=== PATIENT | male | born 1955 | race Caucasian/White ===

== ENCOUNTER 2018-07-13 07:13 | Day surgery (SDC) | payer OTHER, MEDICARE ==
[~2018-07-13] VITALS: Ht 162.6 cm; Wt 64.5 kg
[~2018-07-13 07:13] MED LIST: AMMO225L14 TP; ASPI-1213 PO; ASPI-989 GT; ATOR10TA84 GT; BENZ1TAB10 PO; CALC650T PO; CHOL400T14 PO; CLON.5 GT; CLON.5 PO; DIPH-654 PO; DIPH12.55 GT; DIPH50CA4 PO; DOCU100C33 PO; DSSL GT; FOLI1 GT; FORM20VI IH; IPRA4AER IH; IPRAHFA IH; KETO120S13 TP; KETO15CR2 TP; LACT-125 PO; LACT10SO PO; LACT30L GT; LORA10TA7 GT; MELA3TAB66 GT; METF-960 GT; MULT1CAP32 GT; MULT1TAB58 PO; NYST30CR9 TP; OLAN15TA2 PO; OLAN7.5T2 GT; OMEG1600 GT; OS500 GT; PERID15L MM; POLY510P31 GT; RINGERS SOLUTION,LACTATED 1,000 ML IV ONE; TRAZ150 GT; TRAZ150T79 PO; TRIA1KIT8 TP; VITAD400 GT; [UNRECOGNIZED DRUG - CODE] TP
[2018-07-13 08:14] LABS: INR 0.9 (0.9-1.1); PROTHROMBIN TIME 9.8 SEC (9.4-11.6)
[2018-07-13 08:15] LABS: ANION GAP 9 mmol/L (8-16); CALCIUM, TOTAL 9.7 mg/dL (8.8-10.5); CARBON DIOXIDE 27 mmol/L (22-29); CHLORIDE 104 mmol/L (98-107); CREATININE 0.59 mg/dL (0.60-1.30); GLOMERULAR FILTR. RATE CALC > 60 mL/min (>60); GLUCOSE,RANDOM 105 mg/dL (70-110); SODIUM SERUM 140 mmol/L (136-145); UREA NITROGEN, BLOOD 19 mg/dL (7-18)
[2018-07-13 08:23] LABS: ALANINE AMINOTRANSFERASE 28 U/L (12-78); ALBUMIN 3.7 g/dL (3.4-5.0); ALKALINE PHOSPHATASE 190 U/L (46-116); ASPARTATE AMINOTRANSFERASE 20 U/L (15-37); BASOPHILS % (AUTO) 0.3 % (0.0-2.0); BILIRUBIN,TOTAL 0.5 mg/dL (0.1-1.0); EOSINOPHILS % (AUTO) 3.2 % (1.0-6.0); HEMATOCRIT 39.2 % (41-53); HEMOGLOBIN 13.1 g/dL (13.5-17.5); LYMPHOCYTES # (AUTO) 1.9 K/uL (1.0-4.8); LYMPHOCYTES % (AUTO) 18.3 % (22.0-44.0); MEAN CORPUSCULAR HEMOGLOBIN 29.4 pg (26.0-34.0); MEAN CORPUSCULAR HGB CONC 33.4 G/dL (31.0-37.0); MEAN CORPUSCULAR VOLUME 88 fL (80-100); MONOCYTES # (AUTO) 0.5 K/uL (0.1-1.0); MONOCYTES % (AUTO) 4.8 % (2.0-9.0); NEUTROPHILS # (AUTO) 7.7 K/uL (1.8-7.7); NEUTROPHILS % (AUTO) 73.4 % (40.0-70.0); PLATELET COUNT (AUTO) 178 K/uL (150-450); RED BLOOD CELL COUNT(AUTO) 4.45 MIL/uL (4.50-5.90); RED CELL DISTRIBUTION WIDTH 13.8 % (11.5-14.5); TOTAL PROTEIN, SERUM 8.2 g/dL (6.4-8.2)
== END 2018-07-13 09:15 | disposition short-term general hospital (02) ==
LOC: SURGERY 07:13 → EDBD 07:13 → SURGERY 09:15
PROVIDERS: ATTEND Dentist General Practice
DX: K02.9 Dental caries, unspecified (principal); Z53.8 Procedure and treatment not carried out for other reasons; F79 Unspecified intellectual disabilities; G40.909 Epilepsy, unspecified, not intractable, without status epilepticus; K21.9 Gastro-esophageal reflux disease without esophagitis; E03.9 Hypothyroidism, unspecified; F41.9 Anxiety disorder, unspecified; E11.9 Type 2 diabetes mellitus without complications; G80.9 Cerebral palsy, unspecified; Z79.899 Other long term (current) drug therapy; Z79.82 Long term (current) use of aspirin; Z79.84 Long term (current) use of oral hypoglycemic drugs
CPT/HCPCS: 36415; 71045; 80053; 85025; 85610; 85730; 93005; J7120

== ENCOUNTER 2020-06-04 17:29 | Inpatient (IN) | payer MEDICARE, OTHER ==
[~2020-06-04] VITALS: Ht 157.5 cm; Wt 57.1 kg
[~2020-06-04 17:29] MED LIST changes: -ASPI-1213 PO; -BENZ1TAB10 PO; -CALC650T PO; -CHOL400T14 PO; +CHOL400T56 GT; +CLON-592 GT; -CLON.5 GT; -CLON.5 PO; -DIPH-654 PO; -DIPH50CA4 PO; -DOCU100C33 PO; +FOLI-130 GT; -FOLI1 GT; -KETO120S13 TP; -LACT10SO PO; -MELA3TAB66 GT; +MELA3TAB89 GT; -MULT1TAB58 PO; -OLAN15TA2 PO; -RINGERS SOLUTION,LACTATED 1,000 ML IV ONE; -TRAZ150T79 PO; -VITAD400 GT; -[UNRECOGNIZED DRUG - CODE] TP
[2020-06-04] MEDS ORDERED: SODIUM CHLORIDE 0.9% 1,000 ML IV ONE (19:30)
[2020-06-04 20:49] LABS: COVID AG,FIA SOURCE NASOPHARYNGEAL
[2020-06-04 20:58] LABS: BASOPHILS % (AUTO) 0.2 % (0.0-2.0); EOSINOPHILS % (AUTO) 3.8 % (1.0-6.0); HEMATOCRIT 33.9 % (41-53); HEMOGLOBIN 11.1 g/dL (13.5-17.5); LYMPHOCYTES # (AUTO) 1.2 K/uL (1.0-4.8); LYMPHOCYTES % (AUTO) 10.1 % (22.0-44.0); MEAN CORPUSCULAR HEMOGLOBIN 27.6 pg (26.0-34.0); MEAN CORPUSCULAR HGB CONC 32.7 G/dL (31.0-37.0); MEAN CORPUSCULAR VOLUME 84 fL (80-100); MONOCYTES # (AUTO) 0.5 K/uL (0.1-1.0); MONOCYTES % (AUTO) 4.2 % (2.0-9.0); NEUTROPHILS # (AUTO) 9.8 K/uL (1.8-7.7); NEUTROPHILS % (AUTO) 81.7 % (40.0-70.0); PLATELET COUNT (AUTO) 164 K/uL (150-450); RED BLOOD CELL COUNT(AUTO) 4.02 MIL/uL (4.50-5.90); RED CELL DISTRIBUTION WIDTH 15.5 % (11.5-14.5)
[2020-06-04 21:05] LABS: ANION GAP 11 mmol/L (8-16); CALCIUM, TOTAL 9.2 mg/dL (8.8-10.5); CARBON DIOXIDE 24 mmol/L (22-29); CHLORIDE 104 mmol/L (98-107); CREATININE 0.55 mg/dL (0.60-1.30); GLOMERULAR FILTR. RATE CALC > 60 mL/min (>60); GLUCOSE,RANDOM 144 mg/dL (70-110); POTASSIUM 3.4 mmol/L (3.5-5.1); SODIUM SERUM 139 mmol/L (136-145); UREA NITROGEN, BLOOD 22 mg/dL (7-18)
[2020-06-04 21:30] LABS: ALANINE AMINOTRANSFERASE 25 U/L (12-78); ALBUMIN 3.5 g/dL (3.4-5.0); ALKALINE PHOSPHATASE 152 U/L (46-116); ASPARTATE AMINOTRANSFERASE 17 U/L (15-37); BILIRUBIN,TOTAL 0.3 mg/dL (0.1-1.0); CREATINE KINASE, TOTAL ONLY 85 U/L (39-308); TOTAL PROTEIN, SERUM 8.1 g/dL (6.4-8.2)
[2020-06-04 21:37] LABS: LACTIC ACID 1.2 mmol/L (0.4-2.0)
[2020-06-04 21:52] LABS: APPEARANCE,URINE CLOUDY (CLEAR); BILIRUBIN,URINE NEGATIVE (NEGATIVE); GLUCOSE, URINE (UA) NEGATIVE (NEGATIVE); KETONES,URINE TRACE mg/dL (NEGATIVE); LEUKOCYTE ESTERASE ,URINE NEGATIVE (NEGATIVE); NITRATE,URINE NEGATIVE (NEGATIVE); OCCULT BLOOD,URINE NEGATIVE (NEGATIVE); PROTEIN,URINE NEGATIVE (NEGATIVE); UROBILINOGEN,URINE 0.2 mg/dL (<=1.0)
[2020-06-04] MEDS ORDERED: SODIUM CHLORIDE 0.9% 100 ML ONE (21:52)
[2020-06-04] MEDS ORDERED: IOVERSOL 350 MG/ML 150 ML VIAL ONE (21:52)
[2020-06-04 22:00] LABS: BACTERIA,URINE Many /HPF (None Seen); RBC,URINE 0-2 /HPF (0-2); SQUAMOUS EPITHELIAL CELL,UR Few /LPF (None Seen)
[2020-06-05] MEDS: PIPERACILLIN/TAZO 3.375 GM/D5W 50 ML IV SCH ×4 (02:28→22:06)
[2020-06-05 04:45] VITALS: BP 112/70
[2020-06-05 07:25] VITALS: BP 125/79
[2020-06-05] MEDS ORDERED: DHA GT SCH ×2 (09:00)
[2020-06-05] MEDS ORDERED: DOCUSATE SODIUM 100 MG/10 ML LIQUID UDCUP GT SCH (09:00)
[2020-06-05] MEDS ORDERED: AMMONIUM LACTATE 12% 225 GM LOTION TP SCH (09:00)
[2020-06-05] MEDS ORDERED: POTASSIUM CHLORIDE 20 MEQ ER TABLET PO PRN (09:00)
[2020-06-05] MEDS ORDERED: POTASSIUM CHL 10 MEQ/WATER 50 ML IV PRN (09:00)
[2020-06-05] MEDS ORDERED: TRIAMCINOLONE TP SCH ×2 (09:00)
[2020-06-05] MEDS ORDERED: ATORVASTATIN CALCIUM 10 MG TABLET GT SCH (09:00)
[2020-06-05] MEDS ORDERED: DIMETHICONE TP SCH ×2 (09:00)
[2020-06-05] MEDS ORDERED: NYSTATIN 30 GM CREAM TP SCH (09:00)
[2020-06-05] MEDS ORDERED: FISH OIL GT SCH ×2 (09:00)
[2020-06-05] MEDS ORDERED: CHLORHEXIDINE GLUCONATE 0.12% 15 ML UDCUP ORAL RINSE MM SCH (09:00)
[2020-06-05] MEDS ORDERED: [UNRECOGNIZED DRUG - OTHER] PO SCH (09:00)
[2020-06-05] MEDS ORDERED: MULTIVITAMINS, THERAPEUTIC 15 ML UDCUP GT SCH (09:00)
[2020-06-05] MEDS ORDERED: KETOCONAZOLE 2% 15 GM CREAM TP SCH (09:00)
[2020-06-05] MEDS ORDERED: ClonazePAM 0.5 MG TABLET GT SCH (09:00)
[2020-06-05] MEDS ORDERED: IPRATROPIUM BROMIDE HFA 17 MCG/PUFF 12.9 GM INHALER IH SCH (09:00)
[2020-06-05] MEDS ORDERED: EPA GT SCH ×2 (09:00)
[2020-06-05] MEDS ORDERED: OMEGA GT SCH ×2 (09:00)
[2020-06-05] MEDS ORDERED: CHOLECALCIFEROL (VIT D3) 400 UNITS [10 MCG] TABLET GT SCH (09:00)
[2020-06-05] MEDS ORDERED: FORMOTEROL FUMARATE 20 MCG IH SCH ×2 (09:00)
[2020-06-05] MEDS ORDERED: POLYETHYLENE GLYCOL 3350 17 GM PACKET GT SCH (09:00)
[2020-06-05] MEDS ORDERED: SODIUM CHLORIDE 0.9% 500 ML IV ONE (09:57)
[2020-06-05] MEDS: AMMONIUM LACTATE 12% 225 GM LOTION TP SCH ×2 (10:09→22:08)
[2020-06-05] MEDS: NYSTATIN 30 GM CREAM TP SCH ×2 (10:09→22:07)
[2020-06-05] MEDS: KETOCONAZOLE 2% 15 GM CREAM TP SCH (10:09)
[2020-06-05] MEDS: MULTIVITAMINS, THERAPEUTIC 15 ML UDCUP GT SCH (10:12)
[2020-06-05] MEDS: ASPIRIN 81 MG CHEWABLE TABLET GT SCH (10:12)
[2020-06-05] MEDS: LACTULOSE 20 GM/30 ML SOLUTION UDCUP GT SCH (10:12)
[2020-06-05] MEDS: POLYETHYLENE GLYCOL 3350 17 GM PACKET GT SCH (10:13)
[2020-06-05] MEDS: LORATADINE 10 MG TABLET GT SCH (10:13)
[2020-06-05] MEDS: FOLIC ACID 1 MG TABLET GT SCH (10:13)
[2020-06-05] MEDS: CHOLECALCIFEROL (VIT D3) 400 UNITS [10 MCG] TABLET GT SCH (10:13)
[2020-06-05] MEDS: CHLORHEXIDINE GLUCONATE 0.12% 15 ML UDCUP ORAL RINSE MM SCH ×3 (10:14→21:00)
[2020-06-05] MEDS: ATORVASTATIN CALCIUM 10 MG TABLET GT SCH (10:14)
[2020-06-05] MEDS: ClonazePAM 0.5 MG TABLET GT SCH ×2 (10:14→16:27)
[2020-06-05] MEDS: DOCUSATE SODIUM 100 MG/10 ML LIQUID UDCUP GT SCH ×2 (10:14→22:06)
[2020-06-05] MEDS: IPRATROPIUM BROMIDE HFA 17 MCG/PUFF 12.9 GM INHALER IH SCH (10:15)
[2020-06-05 11:07] VITALS: BP 120/79
[2020-06-05 14:39] VITALS: BP 97/53
[2020-06-05 20:20] VITALS: BP 104/58
[2020-06-05] MEDS ORDERED: OLANZapine 7.5 MG TABLET GT SCH (21:00)
[2020-06-05] MEDS: TraZODone HCL 150 MG TABLET GT SCH (21:00)
[2020-06-05] MEDS ORDERED: CALCIUM OYSTER SHELL 500 MG TABLET GT SCH (21:00)
[2020-06-05] MEDS ORDERED: TraZODone HCL 150 MG TABLET GT SCH (21:00)
[2020-06-05] MEDS: DiphenhydrAMINE HCL 25 MG/10 ML ELIXIR UDCUP GT SCH (21:00)
[2020-06-05] MEDS ORDERED: MELATONIN 3 MG TABLET GT SCH (21:00)
[2020-06-05] MEDS: MELATONIN 3 MG TABLET GT SCH (21:00)
[2020-06-05] MEDS: OLANZapine 7.5 MG TABLET GT SCH (22:06)
[2020-06-05] MEDS: CALCIUM OYSTER SHELL 500 MG TABLET GT SCH (22:06)
[2020-06-06] VITALS (7 sets, daily range): BP systolic 104–124; BP diastolic 56–80
[2020-06-06] MEDS: PIPERACILLIN/TAZO 3.375 GM/D5W 50 ML IV SCH ×4 (04:33→21:08)
[2020-06-06 07:36] LABS: GLUCOMETER DEV NAME(LOC) 5S.1; GLUCOSE,POINT OF CARE 89 MG/DL (70-110)
[2020-06-06] MEDS: CHLORHEXIDINE GLUCONATE 0.12% 15 ML UDCUP ORAL RINSE MM SCH ×3 (07:52→21:10)
[2020-06-06] MEDS: POLYETHYLENE GLYCOL 3350 17 GM PACKET GT SCH (07:59)
[2020-06-06] MEDS: ASPIRIN 81 MG CHEWABLE TABLET GT SCH (08:00)
[2020-06-06] MEDS: LORATADINE 10 MG TABLET GT SCH (08:00)
[2020-06-06] MEDS: CHOLECALCIFEROL (VIT D3) 400 UNITS [10 MCG] TABLET GT SCH (08:00)
[2020-06-06] MEDS: LACTULOSE 20 GM/30 ML SOLUTION UDCUP GT SCH (08:00)
[2020-06-06] MEDS: MULTIVITAMINS, THERAPEUTIC 15 ML UDCUP GT SCH (08:00)
[2020-06-06] MEDS: ATORVASTATIN CALCIUM 10 MG TABLET GT SCH (08:00)
[2020-06-06] MEDS: FOLIC ACID 1 MG TABLET GT SCH (08:00)
[2020-06-06] MEDS: DOCUSATE SODIUM 100 MG/10 ML LIQUID UDCUP GT SCH ×2 (08:01→21:09)
[2020-06-06] MEDS: AMMONIUM LACTATE 12% 225 GM LOTION TP SCH ×2 (08:02→21:10)
[2020-06-06] MEDS: KETOCONAZOLE 2% 15 GM CREAM TP SCH (08:02)
[2020-06-06] MEDS: IPRATROPIUM BROMIDE HFA 17 MCG/PUFF 12.9 GM INHALER IH SCH (08:03)
[2020-06-06] MEDS: NYSTATIN 30 GM CREAM TP SCH ×2 (08:03→21:11)
[2020-06-06] MEDS ORDERED: SODIUM CHLORIDE 0.9% 500 ML IV ONE (20:59)
[2020-06-06] MEDS: MELATONIN 3 MG TABLET GT SCH (21:00)
[2020-06-06] MEDS: TraZODone HCL 150 MG TABLET GT SCH (21:00)
[2020-06-06] MEDS: DiphenhydrAMINE HCL 25 MG/10 ML ELIXIR UDCUP GT SCH (21:00)
[2020-06-06] MEDS: CALCIUM OYSTER SHELL 500 MG TABLET GT SCH (21:09)
[2020-06-06] MEDS: OLANZapine 7.5 MG TABLET GT SCH (21:09)
[2020-06-07] MEDS: PIPERACILLIN/TAZO 3.375 GM/D5W 50 ML IV SCH ×2 (02:11→08:31)
[2020-06-07 04:38] VITALS: BP 106/67
[2020-06-07 06:25] LABS: BASOPHILS % (AUTO) 0.3 % (0.0-2.0); EOSINOPHILS % (AUTO) 4.1 % (1.0-6.0); HEMATOCRIT 33.6 % (41-53); HEMOGLOBIN 11.1 g/dL (13.5-17.5); LYMPHOCYTES # (AUTO) 1.7 K/uL (1.0-4.8); LYMPHOCYTES % (AUTO) 14.5 % (22.0-44.0); MEAN CORPUSCULAR HEMOGLOBIN 27.6 pg (26.0-34.0); MEAN CORPUSCULAR VOLUME 84 fL (80-100); MONOCYTES # (AUTO) 0.7 K/uL (0.1-1.0); MONOCYTES % (AUTO) 5.6 % (2.0-9.0); NEUTROPHILS # (AUTO) 8.9 K/uL (1.8-7.7); NEUTROPHILS % (AUTO) 75.5 % (40.0-70.0); PLATELET COUNT (AUTO) 160 K/uL (150-450); RED BLOOD CELL COUNT(AUTO) 4.02 MIL/uL (4.50-5.90); RED CELL DISTRIBUTION WIDTH 15.1 % (11.5-14.5)
[2020-06-07 06:51] LABS: ANION GAP 10 mmol/L (8-16); CALCIUM, TOTAL 8.8 mg/dL (8.8-10.5); CARBON DIOXIDE 27 mmol/L (22-29); CHLORIDE 107 mmol/L (98-107); CREATININE 0.81 mg/dL (0.60-1.30); GLOMERULAR FILTR. RATE CALC > 60 mL/min (>60); GLUCOSE,RANDOM 173 mg/dL (70-110); SODIUM SERUM 144 mmol/L (136-145); UREA NITROGEN, BLOOD 15 mg/dL (7-18)
[2020-06-07 07:55] VITALS: BP 89/61
[2020-06-07] MEDS: ATORVASTATIN CALCIUM 10 MG TABLET GT SCH (08:31)
[2020-06-07] MEDS: CHLORHEXIDINE GLUCONATE 0.12% 15 ML UDCUP ORAL RINSE MM SCH (08:32)
[2020-06-07] MEDS: MULTIVITAMINS, THERAPEUTIC 15 ML UDCUP GT SCH (08:32)
[2020-06-07] MEDS: FOLIC ACID 1 MG TABLET GT SCH (08:32)
[2020-06-07] MEDS: ASPIRIN 81 MG CHEWABLE TABLET GT SCH (08:38)
[2020-06-07] MEDS: CHOLECALCIFEROL (VIT D3) 400 UNITS [10 MCG] TABLET GT SCH (08:38)
[2020-06-07] MEDS: IPRATROPIUM BROMIDE HFA 17 MCG/PUFF 12.9 GM INHALER IH SCH (08:51)
[2020-06-07] MEDS: NYSTATIN 30 GM CREAM TP SCH (08:51)
[2020-06-07] MEDS: AMMONIUM LACTATE 12% 225 GM LOTION TP SCH (08:51)
[2020-06-07] MEDS: KETOCONAZOLE 2% 15 GM CREAM TP SCH (08:51)
[2020-06-07] MEDS: DOCUSATE SODIUM 100 MG/10 ML LIQUID UDCUP GT SCH (08:55)
[2020-06-07] MEDS: POLYETHYLENE GLYCOL 3350 17 GM PACKET GT SCH (08:55)
[2020-06-07] MEDS: LACTULOSE 20 GM/30 ML SOLUTION UDCUP GT SCH (08:55)
[2020-06-07] MEDS: LORATADINE 10 MG TABLET GT SCH (10:48)
[2020-06-07 11:52] VITALS: BP 115/69
[2020-06-07] MEDS ORDERED: PIPE3.3719 IV (12:17)
== END 2020-06-07 13:22 | DRG 393 ==
LOC: EMS 17:29 → EDUNIT# 17:29 → 5N 06-05 02:00 → EMS 06-05 04:12
PROVIDERS: ADMIT Internal Medicine; ATTEND Internal Medicine
DX: K94.23 Gastrostomy malfunction (principal); J96.01 Acute respiratory failure with hypoxia; J69.0 Pneumonitis due to inhalation of food and vomit; F20.9 Schizophrenia, unspecified; K21.9 Gastro-esophageal reflux disease without esophagitis; F03.90 Unspecified dementia, unspecified severity, without behavioral disturbance, psychotic disturbance, mood disturbance, and anxiety; E11.9 Type 2 diabetes mellitus without complications; D64.9 Anemia, unspecified; E87.6 Hypokalemia; N30.90 Cystitis, unspecified without hematuria; G80.9 Cerebral palsy, unspecified; Z20.822 Contact with and (suspected) exposure to COVID-19; F31.9 Bipolar disorder, unspecified; R13.10 Dysphagia, unspecified; Y83.3 Surgical operation with formation of external stoma as the cause of abnormal reaction of the patient, or of later complication, without mention of misadventure at the time of the procedure; Z79.4 Long term (current) use of insulin; Z86.73 Personal history of transient ischemic attack (TIA), and cerebral infarction without residual deficits; Y92.89 Other specified places as the place of occurrence of the external cause
CPT/HCPCS: 74177; 83605; 83735; 84132; 87040; 87086; 87426; 93005; 99285; A9575; J2543; J3535; J7040; J7050; 36415-L1; 36415-TC; 71045-TC; 82803-TC; U0003

== ENCOUNTER 2020-07-17 09:54 | Emergency (ER) | payer MEDICARE ==
[~2020-07-17] VITALS: Ht 165.1 cm; Wt 56.8 kg
[~2020-07-17 09:54] MED LIST changes: +ASPI81TA87 GT; +CALC650T32 GT; +HEPA500018 SQ; -IPRA4AER IH; -LACT-125 PO; +MERO1VIA22 IV; -METF-960 GT; +MULT-660 GT; -MULT1CAP32 GT; -OLAN7.5T2 GT; +OLAN7.5T22 GT; +OMEG10005 GT; -OMEG1600 GT; -OS500 GT; +PIPE3.3719 IV; -TRIA1KIT8 TP
[2020-07-17 12:48] VITALS: BP 94/64
[2020-07-17] MEDS ORDERED: LIDOCAINE 2% 5 ML JELLY ONE (13:17)
[2020-07-17] MEDS ORDERED: DIATRIZOATE MEGLU/SOD 660/100 MG/ML 120 ML BOTTLE ONE (13:17)
== END 2020-07-17 14:13 ==
LOC: EMS 09:57
DX: K94.23 Gastrostomy malfunction (principal); F31.9 Bipolar disorder, unspecified; E11.9 Type 2 diabetes mellitus without complications; F20.9 Schizophrenia, unspecified; K21.9 Gastro-esophageal reflux disease without esophagitis; Z79.82 Long term (current) use of aspirin; Z79.899 Other long term (current) drug therapy
CPT/HCPCS: 49450; 82962; 99284; Q9963; 76000

== ENCOUNTER 2020-11-03 21:32 | Inpatient (IN) | payer MEDICAID, MEDICARE ==
[~2020-11-03] VITALS: Ht 167.6 cm; Wt 65.3 kg
[~2020-11-03 21:32] MED LIST changes: +ACET-3207 GT; +ALBU8HFA IH; -AMMO225L14 TP; -ASPI-989 GT; +CEFTR1IV IV; -CLON-592 GT; -IPRAHFA IH; -KETO15CR2 TP; +LANS30TA15 GT; -MERO1VIA22 IV; -NYST30CR9 TP; -OLAN7.5T22 GT; -OMEG10005 GT; -PIPE3.3719 IV; -POLY510P31 GT; +PRED20 PO; -TRAZ150 GT; +[UNRECOGNIZED DRUG - CODE] GT
[2020-11-03] MEDS ORDERED: 0.9% SODIUM CHLORIDE 10 ML SYRINGE IVP PRN (22:00)
[2020-11-03] MEDS ORDERED: SODIUM CHLORIDE 0.9% 1,900 ML IV ONE (22:00)
[2020-11-03 22:30] LABS: BASOPHILS % (AUTO) 0.4 % (0.0-2.0); EOSINOPHILS % (AUTO) 0.1 % (1.0-6.0); HEMATOCRIT 43.4 % (41-53); LYMPHOCYTES # (AUTO) 1.3 K/uL (1.0-4.8); LYMPHOCYTES % (AUTO) 6.1 % (22.0-44.0); MEAN CORPUSCULAR HEMOGLOBIN 29.1 pg (26.0-34.0); MEAN CORPUSCULAR HGB CONC 32.3 G/dL (31.0-37.0); MEAN CORPUSCULAR VOLUME 90 fL (80-100); MONOCYTES # (AUTO) 0.9 K/uL (0.1-1.0); MONOCYTES % (AUTO) 4.2 % (2.0-9.0); NEUTROPHILS # (AUTO) 18.3 K/uL (1.8-7.7); PLATELET COUNT (AUTO) 165 K/uL (150-450); RED BLOOD CELL COUNT(AUTO) 4.82 MIL/uL (4.50-5.90)
[2020-11-03] MEDS ORDERED: ACETAMINOPHEN 650 MG/ISO-OSM 65 ML IV ONE (22:30)
[2020-11-03 22:38] LABS: NEUTROPHILS % (AUTO) 89.2 % (40.0-70.0)
[2020-11-03 22:43] LABS: ANION GAP 9 mmol/L (8-16); CARBON DIOXIDE 26 mmol/L (22-29); CHLORIDE 106 mmol/L (98-107); CREATININE 1.21 mg/dL (0.60-1.30); GLOMERULAR FILTR. RATE CALC 60 mL/min (>60); GLUCOSE,RANDOM 269 mg/dL (70-110); POTASSIUM 4.3 mmol/L (3.5-5.1); SODIUM SERUM 141 mmol/L (136-145); UREA NITROGEN, BLOOD 44 mg/dL (7-18)
[2020-11-03 22:48] LABS: APPEARANCE,URINE TURBID (CLEAR); BILIRUBIN,URINE NEGATIVE (NEGATIVE); GLUCOSE, URINE (UA) NEGATIVE (NEGATIVE); KETONES,URINE NEGATIVE (NEGATIVE); LEUKOCYTE ESTERASE ,URINE LARGE (NEGATIVE); NITRATE,URINE NEGATIVE (NEGATIVE); OCCULT BLOOD,URINE NEGATIVE (NEGATIVE); PH,URINE 8.5 (5.0-8.0); PROTEIN,URINE SEE CONFIRM (NEGATIVE); UROBILINOGEN,URINE 0.2 mg/dL (<=1.0)
[2020-11-03] MEDS ORDERED: PIPERACILLIN/TAZO 3.375 GM/D5W 50 ML IV ONE (23:00)
[2020-11-03] MEDS ORDERED: VANCOMYCIN HCL 1.25 GM in DEXTROSE 5%-WATER 250 ML IV ONE (23:00)
[2020-11-03 23:01] LABS: SULFOSALICYLIC ACID,URINE 4+ (Negative)
[2020-11-03 23:06] LABS: BACTERIA,URINE Moderate /HPF (None Seen); RBC,URINE 0-2 /HPF (0-2); SQUAMOUS EPITHELIAL CELL,UR Few /LPF (None Seen); TRIPLE PHOSPHATE CRYSTAL,UR Few /LPF (None Seen); WBC,URINE 51-100 /HPF (0-5)
[2020-11-03 23:08] LABS: ALANINE AMINOTRANSFERASE 56 U/L (12-78); ALBUMIN 3.8 g/dL (3.4-5.0); ALKALINE PHOSPHATASE 248 U/L (46-116); ASPARTATE AMINOTRANSFERASE 28 U/L (15-37); BILIRUBIN,TOTAL 0.4 mg/dL (0.1-1.0); CREATINE KINASE, TOTAL ONLY 90 U/L (39-308); HCG,QUANTITATIVE 1 mIU/mL (0-6); LACTATE DEHYDROGENASE 233 U/L (85-227)
[2020-11-03 23:17] LABS: LACTIC ACID 2.9 mmol/L (0.4-2.0)
[2020-11-04 00:15] LABS: COVID AG,FIA SOURCE NASOPHARYNGEAL
[2020-11-04] MEDS ORDERED: ONDANSETRON HCL 4 MG/2 ML VIAL IVP PRN (00:15)
[2020-11-04] MEDS ORDERED: RINGERS SOLUTION,LACTATED 1,000 ML IV SCH (00:15)
[2020-11-04] MEDS ORDERED: IOHEXOL 350 MG/ML 100 ML VIAL ONE (00:18)
[2020-11-04] MEDS ORDERED: SODIUM CHLORIDE 0.9% 100 ML ONE ×2 (00:19→00:30)
[2020-11-04] MEDS ORDERED: DEXTROSE 50%-WATER 25 GM/50 ML SYRINGE IVP PRN (00:30)
[2020-11-04] MEDS ORDERED: IOHEXOL 350 MG/ML 150 ML VIAL ONE (00:30)
[2020-11-04 00:39] LABS: INFLUENZA TYPE A NEGATIVE FOR TYPE A (NEGATIVE); INFLUENZA TYPE B NEGATIVE FOR TYPE B (NEGATIVE)
[2020-11-04] MEDS: INSULIN GLARGINE,HUM.REC.ANLOG 100 UNITS/ML SQ SCH ×2 (01:28→20:24)
[2020-11-04] MEDS: INSULIN LISPRO 100 UNITS/ML SQ PRN (01:32)
[2020-11-04] MEDS ORDERED: LIDOCAINE 2% 5 ML JELLY ONE (03:11)
[2020-11-04 05:13] LABS: BASOPHILS % (AUTO) 0.2 % (0.0-2.0); EOSINOPHILS % (AUTO) 0 % (1.0-6.0); HEMATOCRIT 34.9 % (41-53); HEMOGLOBIN 11.5 g/dL (13.5-17.5); LYMPHOCYTES # (AUTO) 0.8 K/uL (1.0-4.8); LYMPHOCYTES % (AUTO) 5.1 % (22.0-44.0); MEAN CORPUSCULAR HEMOGLOBIN 29.6 pg (26.0-34.0); MEAN CORPUSCULAR VOLUME 90 fL (80-100); MONOCYTES # (AUTO) 0.8 K/uL (0.1-1.0); MONOCYTES % (AUTO) 5.2 % (2.0-9.0); NEUTROPHILS # (AUTO) 14.7 K/uL (1.8-7.7); PLATELET COUNT (AUTO) 113 K/uL (150-450); RED BLOOD CELL COUNT(AUTO) 3.89 MIL/uL (4.50-5.90); RED CELL DISTRIBUTION WIDTH 15.6 % (11.5-14.5)
[2020-11-04] MEDS: PIPERACILLIN/TAZO 3.375 GM/D5W 50 ML IV SCH ×3 (05:22→17:19)
[2020-11-04 05:26] LABS: ANION GAP 8 mmol/L (8-16); CALCIUM, TOTAL 8.3 mg/dL (8.8-10.5); CARBON DIOXIDE 23 mmol/L (22-29); CHLORIDE 114 mmol/L (98-107); CREATININE 0.98 mg/dL (0.60-1.30); GLOMERULAR FILTR. RATE CALC > 60 mL/min (>60); GLUCOSE,RANDOM 182 mg/dL (70-110); POTASSIUM 3.4 mmol/L (3.5-5.1); SODIUM SERUM 145 mmol/L (136-145); UREA NITROGEN, BLOOD 33 mg/dL (7-18)
[2020-11-04 05:30] LABS: NEUTROPHILS % (AUTO) 89.5 % (40.0-70.0)
[2020-11-04 06:15] LABS: GLUCOMETER DEV NAME(LOC) ERT.5; GLUCOSE,POINT OF CARE 236 MG/DL (70-110)
[2020-11-04] MEDS: VANCOMYCIN HCL 750 MG in DEXTROSE 5%-WATER 250 ML IV SCH ×2 (08:37→20:23)
[2020-11-04] MEDS: HEPARIN SODIUM,PORCINE 5,000 UNITS/ML VIAL SQ SCH ×2 (08:51→15:43)
[2020-11-04] MEDS: SODIUM CHLORIDE 0.9% 1,000 ML IV SCH ×2 (10:03→19:03)
[2020-11-04] MEDS ORDERED: ACETAMINOPHEN 650 MG/ISO-OSM 65 ML IV PRN (13:45)
[2020-11-04 19:27] LABS: GLUCOMETER DEV NAME(LOC) ERT.5; GLUCOSE,POINT OF CARE 154 MG/DL (70-110)
[2020-11-04 21:30] VITALS: BP 108/65
[2020-11-05] MEDS: HEPARIN SODIUM,PORCINE 5,000 UNITS/ML VIAL SQ SCH ×3 (00:10→17:19)
[2020-11-05] MEDS: PIPERACILLIN/TAZO 3.375 GM/D5W 50 ML IV SCH ×4 (00:10→19:13)
[2020-11-05 00:12] VITALS: BP 103/64
[2020-11-05 05:03] VITALS: BP 115/67
[2020-11-05] MEDS: SODIUM CHLORIDE 0.9% 1,000 ML IV SCH ×2 (05:23→17:21)
[2020-11-05 07:30] VITALS: BP 115/69
[2020-11-05 08:12] LABS: BASOPHILS % (AUTO) 0.2 % (0.0-2.0); EOSINOPHILS % (AUTO) 5.6 % (1.0-6.0); HEMATOCRIT 31.6 % (41-53); HEMOGLOBIN 10.3 g/dL (13.5-17.5); LYMPHOCYTES # (AUTO) 1.5 K/uL (1.0-4.8); LYMPHOCYTES % (AUTO) 14.9 % (22.0-44.0); MEAN CORPUSCULAR HEMOGLOBIN 29.7 pg (26.0-34.0); MEAN CORPUSCULAR HGB CONC 32.5 G/dL (31.0-37.0); MEAN CORPUSCULAR VOLUME 92 fL (80-100); MONOCYTES # (AUTO) 0.5 K/uL (0.1-1.0); MONOCYTES % (AUTO) 5.4 % (2.0-9.0); NEUTROPHILS # (AUTO) 7.4 K/uL (1.8-7.7); NEUTROPHILS % (AUTO) 73.9 % (40.0-70.0); RED BLOOD CELL COUNT(AUTO) 3.45 MIL/uL (4.50-5.90); RED CELL DISTRIBUTION WIDTH 15.2 % (11.5-14.5)
[2020-11-05 08:16] LABS: ANION GAP 8 mmol/L (8-16); CALCIUM, TOTAL 8.8 mg/dL (8.8-10.5); CARBON DIOXIDE 24 mmol/L (22-29); CHLORIDE 113 mmol/L (98-107); CREATININE 0.55 mg/dL (0.60-1.30); GLOMERULAR FILTR. RATE CALC > 60 mL/min (>60); GLUCOSE,RANDOM 118 mg/dL (70-110); POTASSIUM 3.4 mmol/L (3.5-5.1); SODIUM SERUM 145 mmol/L (136-145); UREA NITROGEN, BLOOD 18 mg/dL (7-18)
[2020-11-05] MEDS: VANCOMYCIN HCL 750 MG in DEXTROSE 5%-WATER 250 ML IV SCH ×2 (08:28→19:50)
[2020-11-05 09:28] LABS: PLATELET COUNT (AUTO) 91 K/uL (150-450)
[2020-11-05 11:00] VITALS: BP 134/82
[2020-11-05] MEDS ORDERED: POTASSIUM CHLORIDE 20 MEQ ER TABLET PEG PRN (12:45)
[2020-11-05 14:57] VITALS: BP 117/66
[2020-11-05 17:32] LABS: GLUCOMETER DEV NAME(LOC) 5N.3; GLUCOSE,POINT OF CARE 125 MG/DL (70-110)
[2020-11-05 19:47] LABS: GLUCOMETER DEV NAME(LOC) 5S.2B; GLUCOSE,POINT OF CARE 119 MG/DL (70-110)
[2020-11-05 19:48] LABS: GLUCOMETER DEV NAME(LOC) 5N.1C; GLUCOSE,POINT OF CARE 115 MG/DL (70-110)
[2020-11-05 20:41] VITALS: BP 134/69
[2020-11-05] MEDS: INSULIN GLARGINE,HUM.REC.ANLOG 100 UNITS/ML SQ SCH (21:00)
[2020-11-05 22:19] LABS: GLUCOMETER DEV NAME(LOC) 5N.3; GLUCOSE,POINT OF CARE 150 MG/DL (70-110)
[2020-11-06] VITALS (8 sets, daily range): BP systolic 112–137; BP diastolic 50–89
[2020-11-06] MEDS: HEPARIN SODIUM,PORCINE 5,000 UNITS/ML VIAL SQ SCH ×4 (00:19→23:10)
[2020-11-06] MEDS: PIPERACILLIN/TAZO 3.375 GM/D5W 50 ML IV SCH ×5 (00:20→23:11)
[2020-11-06] MEDS: POTASSIUM CHL 10 MEQ/WATER 50 ML IV PRN ×3 (01:09→04:15)
[2020-11-06] MEDS: SODIUM CHLORIDE 0.9% 1,000 ML IV SCH ×2 (02:01→13:13)
[2020-11-06 06:57] LABS: GLUCOMETER DEV NAME(LOC) 5N.3; GLUCOSE,POINT OF CARE 104 MG/DL (70-110)
[2020-11-06 06:58] LABS: ANION GAP 12 mmol/L (8-16); CALCIUM, TOTAL 8.5 mg/dL (8.8-10.5); CARBON DIOXIDE 21 mmol/L (22-29); CHLORIDE 111 mmol/L (98-107); CREATININE 0.47 mg/dL (0.60-1.30); GLOMERULAR FILTR. RATE CALC > 60 mL/min (>60); GLUCOSE,RANDOM 110 mg/dL (70-110); POTASSIUM 3.7 mmol/L (3.5-5.1); SODIUM SERUM 144 mmol/L (136-145); UREA NITROGEN, BLOOD 15 mg/dL (7-18)
[2020-11-06] MEDS: VANCOMYCIN HCL 1 GM/D5% WATER 200 ML IV SCH ×2 (14:02→20:11)
[2020-11-06 16:57] LABS: GLUCOMETER DEV NAME(LOC) 5N.3; GLUCOSE,POINT OF CARE 126 MG/DL (70-110)
[2020-11-06] MEDS ORDERED: ALBUTEROL SULFATE HFA 90 MCG/PUFF 8 GM INHALER IH PRN (17:15)
[2020-11-06 17:19] LABS: GLUCOMETER DEV NAME(LOC) 5N.3; GLUCOSE,POINT OF CARE 170 MG/DL (70-110)
[2020-11-06] MEDS: INSULIN LISPRO 100 UNITS/ML SQ PRN ×2 (18:19→21:05)
[2020-11-06] MEDS: INSULIN GLARGINE,HUM.REC.ANLOG 100 UNITS/ML SQ SCH (21:03)
[2020-11-06 21:38] LABS: GLUCOMETER DEV NAME(LOC) 5N.1C; GLUCOSE,POINT OF CARE 108 MG/DL (70-110)
[2020-11-06] MEDS ORDERED: SODIUM CHLORIDE 0.9% 500 ML IV ONE (23:11)
[2020-11-06] MEDS: MORPHINE SULFATE 2 MG/ML SYRINGE IVP PRN (23:13)
[2020-11-07 04:32] VITALS: BP 115/76
[2020-11-07] MEDS: PIPERACILLIN/TAZO 3.375 GM/D5W 50 ML IV SCH (05:25)
[2020-11-07 06:41] LABS: GLUCOMETER DEV NAME(LOC) 5N.1C; GLUCOSE,POINT OF CARE 117 MG/DL (70-110)
[2020-11-07 07:18] VITALS: BP 122/66
[2020-11-07 07:18] LABS: ANION GAP 8 mmol/L (8-16); CALCIUM, TOTAL 8.6 mg/dL (8.8-10.5); CARBON DIOXIDE 25 mmol/L (22-29); CHLORIDE 108 mmol/L (98-107); CREATININE 0.68 mg/dL (0.60-1.30); GLOMERULAR FILTR. RATE CALC > 60 mL/min (>60); GLUCOSE,RANDOM 122 mg/dL (70-110); POTASSIUM 3.7 mmol/L (3.5-5.1); SODIUM SERUM 141 mmol/L (136-145); UREA NITROGEN, BLOOD 15 mg/dL (7-18)
[2020-11-07] MEDS: HEPARIN SODIUM,PORCINE 5,000 UNITS/ML VIAL SQ SCH (07:51)
[2020-11-07] MEDS: MORPHINE SULFATE 2 MG/ML SYRINGE IVP PRN (09:02)
[2020-11-07] MEDS: VANCOMYCIN HCL 1 GM/D5% WATER 200 ML IV SCH (09:13)
[2020-11-07 11:14] VITALS: BP 128/78
== END 2020-11-07 12:40 | DRG 871 ==
LOC: EMS 21:32 → 5N 11-04 19:00 → 5S 11-04 21:00
PROVIDERS: ADMIT Internal Medicine; ATTEND Internal Medicine
DX: A41.9 Sepsis, unspecified organism (principal); J96.20 Acute and chronic respiratory failure, unspecified whether with hypoxia or hypercapnia; J18.9 Pneumonia, unspecified organism; E87.2 Acidosis; F03.90 Unspecified dementia, unspecified severity, without behavioral disturbance, psychotic disturbance, mood disturbance, and anxiety; F20.9 Schizophrenia, unspecified; F31.9 Bipolar disorder, unspecified; F42.9 Obsessive-compulsive disorder, unspecified; N30.90 Cystitis, unspecified without hematuria; Z20.822 Contact with and (suspected) exposure to COVID-19; D63.8 Anemia in other chronic diseases classified elsewhere; D69.6 Thrombocytopenia, unspecified; E87.6 Hypokalemia; K21.9 Gastro-esophageal reflux disease without esophagitis; E11.65 Type 2 diabetes mellitus with hyperglycemia; K80.20 Calculus of gallbladder without cholecystitis without obstruction; N20.9 Urinary calculus, unspecified; Z86.73 Personal history of transient ischemic attack (TIA), and cerebral infarction without residual deficits; Z79.899 Other long term (current) drug therapy; Z79.4 Long term (current) use of insulin; Z93.1 Gastrostomy status; Z74.01 Bed confinement status
CPT/HCPCS: 51702; 71045; 71275; 74177; 76705; 80048; 80053; 80202; 81001; 81002; 82550; 82962; 83036; 83605; 83615; 84132; 84145; 84702; 85025; 85730; 87040; 87077; 87081; 87086; 87186; 87804; 93005; 99291; J0131; J1644; J1815; J2270; J2543; J3370; J3480; J3535; J7030; J7040; J7050; J7060; J7120; Q9967; 36415-L1; 36415-TC; U0003

== ENCOUNTER 2021-01-06 10:20 | Emergency (ER) | payer MEDICARE ==
[~2021-01-06] VITALS: Ht 167.6 cm; Wt 81.8 kg
[~2021-01-06 10:20] MED LIST changes: -CEFTR1IV IV; -DIPH12.55 GT; -LORA10TA7 GT; -PRED20 PO; +TRAZ150T80 GT; -[UNRECOGNIZED DRUG - CODE] GT
[2021-01-06 12:56] VITALS: BP 131/70
== END 2021-01-06 12:58 ==
LOC: EMS 10:22
DX: Z04.3 Encounter for examination and observation following other accident (principal); F31.9 Bipolar disorder, unspecified; I63.9 Cerebral infarction, unspecified; E84.9 Cystic fibrosis, unspecified; F03.90 Unspecified dementia, unspecified severity, without behavioral disturbance, psychotic disturbance, mood disturbance, and anxiety; E11.9 Type 2 diabetes mellitus without complications; K21.9 Gastro-esophageal reflux disease without esophagitis; F20.9 Schizophrenia, unspecified; F42.9 Obsessive-compulsive disorder, unspecified; W06.XXXA Fall from bed, initial encounter; Y93.89 Activity, other specified; Y92.89 Other specified places as the place of occurrence of the external cause; Y99.8 Other external cause status
CPT/HCPCS: 82962; 99283

== ENCOUNTER 2021-01-27 10:54 | Emergency (ER) | payer MEDICARE ==
[~2021-01-27] VITALS: Ht 170.2 cm; Wt 65.0 kg
[2021-01-27] MEDS ORDERED: LIDOCAINE 2% 5 ML JELLY ONE (12:44)
[2021-01-27] MEDS ORDERED: DIATRIZOATE MEGLU/SOD 660/100 MG/ML 120 ML BOTTLE ONE (12:54)
[2021-01-27] MEDS ORDERED: RINGERS SOLUTION,LACTATED 1,000 ML IV ONE (15:15)
[2021-01-27 16:45] VITALS: BP 110/76
== END 2021-01-27 18:02 | disposition home or self-care (01) ==
LOC: EMS 10:58
DX: K94.23 Gastrostomy malfunction (principal); F31.9 Bipolar disorder, unspecified; E11.9 Type 2 diabetes mellitus without complications; K21.9 Gastro-esophageal reflux disease without esophagitis; F20.9 Schizophrenia, unspecified; Z86.73 Personal history of transient ischemic attack (TIA), and cerebral infarction without residual deficits; Z79.82 Long term (current) use of aspirin
CPT/HCPCS: 36245; 49450; 99284; Q9963; 76001

== ENCOUNTER 2021-02-28 03:41 | Inpatient (IN) | payer MEDICARE, OTHER ==
[~2021-02-28] VITALS: Ht 157.5 cm; Wt 71.3 kg
[2021-02-28] MEDS ORDERED: SODIUM CHLORIDE 0.9% 2,300 ML IV ONE (04:00)
[2021-02-28] MEDS ORDERED: 0.9% SODIUM CHLORIDE 10 ML SYRINGE IVP PRN (04:00)
[2021-02-28 04:14] LABS: BASOPHILS % (AUTO) 0.4 % (0.0-2.0); EOSINOPHILS % (AUTO) 3.7 % (1.0-6.0); HEMATOCRIT 35.2 % (41-53); HEMOGLOBIN 11.8 g/dL (13.5-17.5); LYMPHOCYTES # (AUTO) 0.5 K/uL (1.0-4.8); MEAN CORPUSCULAR HGB CONC 33.6 G/dL (31.0-37.0); MEAN CORPUSCULAR VOLUME 83 fL (80-100); MONOCYTES # (AUTO) 0.8 K/uL (0.1-1.0); MONOCYTES % (AUTO) 8.5 % (2.0-9.0); NEUTROPHILS # (AUTO) 8.2 K/uL (1.8-7.7); NEUTROPHILS % (AUTO) 82.4 % (40.0-70.0); PLATELET COUNT (AUTO) 118 K/uL (150-450); RED BLOOD CELL COUNT(AUTO) 4.22 MIL/uL (4.50-5.90)
[2021-02-28 04:29] LABS: ANION GAP 8 mmol/L (8-16); CALCIUM, TOTAL 9.2 mg/dL (8.8-10.5); CARBON DIOXIDE 26 mmol/L (22-29); CHLORIDE 101 mmol/L (98-107); CREATININE 0.76 mg/dL (0.60-1.30); GLOMERULAR FILTR. RATE CALC > 60 mL/min (>60); GLUCOSE,RANDOM 134 mg/dL (70-110); POTASSIUM 4.1 mmol/L (3.5-5.1); SODIUM SERUM 135 mmol/L (136-145); UREA NITROGEN, BLOOD 24 mg/dL (7-18)
[2021-02-28 04:32] LABS: LACTIC ACID 1.4 mmol/L (0.4-2.0)
[2021-02-28] MEDS ORDERED: MULT9LIQ6 GT (04:45)
[2021-02-28] MEDS ORDERED: FORM20VI IH (04:45)
[2021-02-28] MEDS ORDERED: TRAZ-257 GT (04:45)
[2021-02-28] MEDS ORDERED: INSU100V SQ (04:45)
[2021-02-28] MEDS ORDERED: INSU100I26 SQ (04:45)
[2021-02-28] MEDS ORDERED: SCOP1PAT12 TD (04:45)
[2021-02-28] MEDS ORDERED: CALC500O GT (04:45)
[2021-02-28] MEDS ORDERED: MIDO5TAB29 GT (04:45)
[2021-02-28] MEDS ORDERED: ARIP5TAB37 GT (04:45)
[2021-02-28 04:55] LABS: ALANINE AMINOTRANSFERASE 35 U/L (12-78); ALBUMIN 3.3 g/dL (3.4-5.0); ALKALINE PHOSPHATASE 272 U/L (46-116); ASPARTATE AMINOTRANSFERASE 24 U/L (15-37); BILIRUBIN,TOTAL 0.3 mg/dL (0.1-1.0); CREATINE KINASE, TOTAL ONLY 87 U/L (39-308); HCG,QUANTITATIVE 2 mIU/mL (0-6); LACTATE DEHYDROGENASE 173 U/L (85-227); TOTAL PROTEIN, SERUM 7.7 g/dL (6.4-8.2)
[2021-02-28 05:13] LABS: COVID AG,FIA SOURCE NASAL SWAB
[2021-02-28] MEDS ORDERED: VANCOMYCIN HCL 1 GM/D5% WATER 200 ML IV ONE (05:15)
[2021-02-28] MEDS ORDERED: PIPERACILLIN SODIUM/TAZOBACTAM 4.5 GM in DEXTROSE 5%-WATER 100 ML IV ONE (05:15)
[2021-02-28 05:21] LABS: APPEARANCE,URINE TURBID (CLEAR); BILIRUBIN,URINE NEGATIVE (NEGATIVE); GLUCOSE, URINE (UA) NEGATIVE (NEGATIVE); KETONES,URINE TRACE mg/dL (NEGATIVE); LEUKOCYTE ESTERASE ,URINE LARGE (NEGATIVE); NITRATE,URINE NEGATIVE (NEGATIVE); OCCULT BLOOD,URINE SMALL (NEGATIVE); PROTEIN,URINE POS 1+ (NEGATIVE); UROBILINOGEN,URINE 0.2 mg/dL (<=1.0)
[2021-02-28 05:23] LABS: BACTERIA,URINE Many /HPF (None Seen); WBC,URINE 26-50 /HPF (0-5)
[2021-02-28] MEDS ORDERED: ACETAMINOPHEN 650 MG RECTAL SUPPOSITORY PR ONE (08:15)
[2021-02-28 10:02] VITALS: BP 110/63
[2021-02-28] MEDS ORDERED: DEXTROSE 50%-WATER 25 GM/50 ML SYRINGE IVP PRN (10:45)
[2021-02-28] MEDS ORDERED: ONDANSETRON HCL 4 MG/2 ML VIAL IVP PRN (10:45)
[2021-02-28] MEDS ORDERED: BISACODYL 10 MG RECTAL RECTAL SUPPOSITORY PR PRN (10:45)
[2021-02-28] MEDS ORDERED: SODIUM CHLORIDE 0.9% 250 ML IV ONE (12:11)
[2021-02-28] MEDS: CefTRIAXone 1 GM/DEXTROSE 50 ML IV SCH (12:24)
[2021-02-28 13:03] VITALS: BP 116/66
[2021-02-28 16:02] VITALS: BP 115/66
[2021-02-28] MEDS: HEPARIN SODIUM,PORCINE 5,000 UNITS/ML VIAL SQ SCH ×2 (17:22→23:31)
[2021-02-28 19:49] VITALS: BP 128/76
[2021-02-28 20:56] LABS: GLUCOMETER DEV NAME(LOC) 5S.1; GLUCOSE,POINT OF CARE 129 MG/DL (70-110)
[2021-02-28 20:56] LABS: GLUCOMETER DEV NAME(LOC) 5S.1; GLUCOSE,POINT OF CARE 136 MG/DL (70-110)
[2021-02-28] MEDS: DOCUSATE SODIUM 100 MG CAPSULE PO SCH (21:00)
[2021-02-28] MEDS: VANCOMYCIN HCL 1 GM/D5% WATER 200 ML IV SCH (21:32)
[2021-03-01 00:09] VITALS: BP 138/79
[2021-03-01 04:39] VITALS: BP 120/58
[2021-03-01] MEDS: ACETAMINOPHEN 325 MG TABLET PO PRN ×2 (04:55→09:03)
[2021-03-01 06:31] LABS: GLUCOMETER DEV NAME(LOC) 5N.3; GLUCOSE,POINT OF CARE 125 MG/DL (70-110)
[2021-03-01 07:01] LABS: GLUCOMETER DEV NAME(LOC) 5S.2B; GLUCOSE,POINT OF CARE 135 MG/DL (70-110)
[2021-03-01 07:24] VITALS: BP 124/74
[2021-03-01 08:33] LABS: ANION GAP 6 mmol/L (8-16); CALCIUM, TOTAL 8.5 mg/dL (8.8-10.5); CARBON DIOXIDE 26 mmol/L (22-29); CHLORIDE 103 mmol/L (98-107); CREATININE 0.66 mg/dL (0.60-1.30); GLOMERULAR FILTR. RATE CALC > 60 mL/min (>60); GLUCOSE,RANDOM 124 mg/dL (70-110); POTASSIUM 3.8 mmol/L (3.5-5.1); SODIUM SERUM 135 mmol/L (136-145); UREA NITROGEN, BLOOD 15 mg/dL (7-18)
[2021-03-01] MEDS: ASPIRIN 81 MG CHEWABLE TABLET PEG SCH (09:02)
[2021-03-01] MEDS: FAMOTIDINE 20 MG TABLET PO SCH (09:02)
[2021-03-01] MEDS: DOCUSATE SODIUM 100 MG CAPSULE PO SCH ×2 (09:02→20:05)
[2021-03-01] MEDS: VANCOMYCIN HCL 1 GM/D5% WATER 200 ML IV SCH ×2 (09:02→19:51)
[2021-03-01] MEDS: HEPARIN SODIUM,PORCINE 5,000 UNITS/ML VIAL SQ SCH ×3 (09:02→23:48)
[2021-03-01 11:11] VITALS: BP 116/71
[2021-03-01] MEDS: CefTRIAXone 1 GM/DEXTROSE 50 ML IV SCH (11:23)
[2021-03-01] MEDS: INSULIN LISPRO 100 UNITS/ML SQ PRN (12:09)
[2021-03-01 12:11] LABS: GLUCOMETER DEV NAME(LOC) 5S.2B; GLUCOSE,POINT OF CARE 155 MG/DL (70-110)
[2021-03-01 15:31] VITALS: BP 123/73
[2021-03-01 19:18] VITALS: BP 117/93
[2021-03-02 00:37] VITALS: BP 134/82
[2021-03-02] MEDS: ACETAMINOPHEN 325 MG TABLET PO PRN ×2 (02:53→16:26)
[2021-03-02 03:39] VITALS: BP 126/64
[2021-03-02] MEDS: INSULIN LISPRO 100 UNITS/ML SQ PRN ×2 (05:42→12:08)
[2021-03-02] MEDS: HEPARIN SODIUM,PORCINE 5,000 UNITS/ML VIAL SQ SCH ×3 (08:00→15:49)
[2021-03-02 08:02] LABS: BASOPHILS % (AUTO) 0.6 % (0.0-2.0); EOSINOPHILS % (AUTO) 0.7 % (1.0-6.0); HEMATOCRIT 35.9 % (41-53); LYMPHOCYTES # (AUTO) 1.2 K/uL (1.0-4.8); LYMPHOCYTES % (AUTO) 18.4 % (22.0-44.0); MEAN CORPUSCULAR HGB CONC 33.5 G/dL (31.0-37.0); MEAN CORPUSCULAR VOLUME 84 fL (80-100); MONOCYTES # (AUTO) 0.5 K/uL (0.1-1.0); MONOCYTES % (AUTO) 7.5 % (2.0-9.0); NEUTROPHILS # (AUTO) 4.9 K/uL (1.8-7.7); NEUTROPHILS % (AUTO) 72.8 % (40.0-70.0); RED BLOOD CELL COUNT(AUTO) 4.29 MIL/uL (4.50-5.90); RED CELL DISTRIBUTION WIDTH 14.8 % (11.5-14.5)
[2021-03-02 08:45] LABS: ANION GAP 8 mmol/L (8-16); CALCIUM, TOTAL 8.7 mg/dL (8.8-10.5); CARBON DIOXIDE 24 mmol/L (22-29); CHLORIDE 103 mmol/L (98-107); GLOMERULAR FILTR. RATE CALC > 60 mL/min (>60); GLUCOSE,RANDOM 135 mg/dL (70-110); POTASSIUM 3.9 mmol/L (3.5-5.1); SODIUM SERUM 135 mmol/L (136-145); UREA NITROGEN, BLOOD 16 mg/dL (7-18); VANCOMYCIN,RANDOM 12.6 mcg/mL (25.0-50.0)
[2021-03-02] MEDS: DOCUSATE SODIUM 100 MG CAPSULE PO SCH ×2 (08:55→19:59)
[2021-03-02] MEDS: ASPIRIN 81 MG CHEWABLE TABLET PEG SCH (08:56)
[2021-03-02] MEDS: FAMOTIDINE 20 MG TABLET PO SCH (08:56)
[2021-03-02 09:07] LABS: PLATELET COUNT (AUTO) 84 K/uL (150-450)
[2021-03-02] MEDS: VANCOMYCIN HCL 1 GM/D5% WATER 200 ML IV SCH ×2 (09:09→19:59)
[2021-03-02] MEDS: CefTRIAXone 1 GM/DEXTROSE 50 ML IV SCH (12:07)
[2021-03-02 14:17] LABS: GLUCOMETER DEV NAME(LOC) 5S.2B; GLUCOSE,POINT OF CARE 200 MG/DL (70-110)
[2021-03-02 17:22] LABS: GLUCOMETER DEV NAME(LOC) 5S.1; GLUCOSE,POINT OF CARE 136 MG/DL (70-110)
[2021-03-02 17:22] LABS: GLUCOMETER DEV NAME(LOC) 5S.1; GLUCOSE,POINT OF CARE 132 MG/DL (70-110)
[2021-03-02 17:42] LABS: GLUCOMETER DEV NAME(LOC) 5N.1C; GLUCOSE,POINT OF CARE 132 MG/DL (70-110)
[2021-03-02 20:06] VITALS: BP 120/74
[2021-03-02] MEDS ORDERED: SODIUM CHLORIDE 0.9% 500 ML IV ONE (20:09)
[2021-03-03 00:15] VITALS: BP 113/61
[2021-03-03] MEDS: ACETAMINOPHEN 325 MG TABLET PO PRN ×3 (00:16→11:44)
[2021-03-03 04:50] VITALS: BP 120/65
[2021-03-03] MEDS: INSULIN LISPRO 100 UNITS/ML SQ PRN ×2 (05:43→11:42)
[2021-03-03 07:28] VITALS: BP 123/80
[2021-03-03] MEDS: HEPARIN SODIUM,PORCINE 5,000 UNITS/ML VIAL SQ SCH ×3 (08:00→15:25)
[2021-03-03] MEDS: VANCOMYCIN HCL 1 GM/D5% WATER 200 ML IV SCH (08:01)
[2021-03-03] MEDS: DOCUSATE SODIUM 100 MG CAPSULE PO SCH (08:01)
[2021-03-03] MEDS: FAMOTIDINE 20 MG TABLET PO SCH (08:02)
[2021-03-03] MEDS: ASPIRIN 81 MG CHEWABLE TABLET PEG SCH (08:03)
[2021-03-03 08:04] LABS: ANION GAP 5 mmol/L (8-16); CALCIUM, TOTAL 8.8 mg/dL (8.8-10.5); CARBON DIOXIDE 28 mmol/L (22-29); CHLORIDE 105 mmol/L (98-107); CREATININE 0.76 mg/dL (0.60-1.30); GLOMERULAR FILTR. RATE CALC > 60 mL/min (>60); GLUCOSE,RANDOM 177 mg/dL (70-110); POTASSIUM 4.3 mmol/L (3.5-5.1); SODIUM SERUM 138 mmol/L (136-145); UREA NITROGEN, BLOOD 20 mg/dL (7-18)
[2021-03-03] MEDS: CefTRIAXone 1 GM/DEXTROSE 50 ML IV SCH (10:20)
[2021-03-03 11:03] VITALS: BP 122/68
[2021-03-03 11:46] LABS: GLUCOMETER DEV NAME(LOC) 5N.3; GLUCOSE,POINT OF CARE 142 MG/DL (70-110)
[2021-03-03 14:22] VITALS: BP 103/67
[2021-03-03] MEDS ORDERED: DOCU-270 PO (16:00)
[2021-03-03] MEDS ORDERED: CefTAZidime PENTAHYDRATE 1 GM in DEXTROSE 5%-WATER 50 ML IV SCH (16:00)
[2021-03-03] MEDS ORDERED: CEFT1VIA IV (16:00)
[2021-03-03] MEDS ORDERED: HEPA500018 SQ (16:01)
[2021-03-03] MEDS ORDERED: FAMO20 PO (16:01)
[2021-03-03] MEDS ORDERED: BISA10SU11 PR (16:01)
[2021-03-03 16:06] LABS: GLUCOMETER DEV NAME(LOC) 5S.2B; GLUCOSE,POINT OF CARE 178 MG/DL (70-110)
[2021-03-03 16:06] LABS: GLUCOMETER DEV NAME(LOC) 5S.2B; GLUCOSE,POINT OF CARE 153 MG/DL (70-110)
[2021-03-03 16:06] LABS: GLUCOMETER DEV NAME(LOC) 5S.1; GLUCOSE,POINT OF CARE 141 MG/DL (70-110)
[2021-03-04 11:46] LABS: GLUCOMETER DEV NAME(LOC) 5N.3; GLUCOSE,POINT OF CARE 128 MG/DL (70-110)
[2021-03-06] MEDS ORDERED: SCOPOLAMINE HYDROBROMIDE 1 MG/72 HOUR PATCH TD SCH (09:00)
== END 2021-03-03 20:00 | DRG 689 ==
LOC: EMS 03:44 → 5S 07:47
PROVIDERS: ADMIT Hospitalist; ATTEND Hospitalist
DX: N39.0 Urinary tract infection, site not specified (principal); R53.2 Functional quadriplegia; E11.9 Type 2 diabetes mellitus without complications; F03.90 Unspecified dementia, unspecified severity, without behavioral disturbance, psychotic disturbance, mood disturbance, and anxiety; F20.9 Schizophrenia, unspecified; F42.9 Obsessive-compulsive disorder, unspecified; I10 Essential (primary) hypertension; K21.9 Gastro-esophageal reflux disease without esophagitis; Z20.822 Contact with and (suspected) exposure to COVID-19; Z74.01 Bed confinement status; Z86.73 Personal history of transient ischemic attack (TIA), and cerebral infarction without residual deficits; Z79.899 Other long term (current) drug therapy; Z79.82 Long term (current) use of aspirin
CPT/HCPCS: 71045; 80048; 80053; 80202; 81001; 82550; 82962; 83605; 83615; 84145; 84702; 85025; 85730; 87040; 87086; 94799; 99285; J0696; J0713; J1644; J2543; J3370; J7040; J7050; J7060; 36415-L1; 36415-TC